=== PATIENT | female | born 1985 | race African-American/Black ===

== ENCOUNTER 2018-06-28 02:14 | Emergency (ER) | payer MEDICAID, OTHER ==
[~2018-06-28] VITALS: Ht 170.2 cm; Wt 104.0 kg
[2018-06-28] MEDS ORDERED: DIPHENHYDRAMINE 50MG CAPSULE PO ONE (02:45)
[2018-06-28 03:17] VITALS: BP 138/76
== END 2018-06-28 03:30 | disposition home or self-care (01) ==
LOC: ER 02:14
DX: O99.89 Other specified diseases and conditions complicating pregnancy, childbirth and the puerperium (principal); T78.1XXA Other adverse food reactions, not elsewhere classified, initial encounter; X58.XXXA Exposure to other specified factors, initial encounter; R10.9 Unspecified abdominal pain; R03.0 Elevated blood-pressure reading, without diagnosis of hypertension; Z3A.16 16 weeks gestation of pregnancy
CPT/HCPCS: 99283; Z7610; Q0163

== ENCOUNTER 2018-09-16 00:50 | Emergency (ER) | payer MEDICAID ==
[~2018-09-16 00:50] MED LIST: LEVO50TA MT; PNV1TABL50 MT; PROP80CA43 MT
== END 2018-09-16 03:28 | disposition left against medical advice (07) ==
LOC: ER 00:50
DX: Z53.21 Procedure and treatment not carried out due to patient leaving prior to being seen by health care provider (principal)

== ENCOUNTER 2018-10-20 11:34 | Emergency (ER) | payer MEDICAID ==
[~2018-10-20] VITALS: Ht 170.2 cm; Wt 98.6 kg
[2018-10-20 11:54] VITALS: BP 170/112
== END 2018-10-20 13:46 | disposition home or self-care (01) ==
LOC: ER 11:34
DX: O86.01 Infection of obstetric surgical wound, superficial incisional site (principal); O13.5 Gestational [pregnancy-induced] hypertension without significant proteinuria, complicating the puerperium; E89.0 Postprocedural hypothyroidism
CPT/HCPCS: 99283

== ENCOUNTER 2022-12-10 14:06 | Emergency (ER) | payer MEDICAID ==
[~2022-12-10] VITALS: Ht 177.8 cm; Wt 113.0 kg
[~2022-12-10 14:06] MED LIST changes: -PROP80CA43 MT; +PROP80CA59 MT
[2022-12-10 14:13] VITALS: BP 139/82
[2022-12-10] MEDS ORDERED: ONDANSETRON 4MG ODT PO ONE (14:30)
[2022-12-10] MEDS ORDERED: FAMOTIDINE 20MG TABLET PO ONE (14:30)
[2022-12-10] MEDS ORDERED: MAGNESIUM/ALUMINUM HYDROXIDE/SIMETHICONE 30ML UDC PO ONE (14:30)
[2022-12-10 15:18] LABS: CHLORIDE 109 mEq/L (98-107)
[2022-12-10 15:28] LABS: BASOPHILS % 0.2 % (0.0-2.0); EOSINOPHILS % 1.6 % (0.0-5.0); HEMOGLOBIN. 12.2 g/dL (12.0-16.0); LYMPHOCYTES % 19.9 % (20.0-50.0); MEAN CORPUSCULAR HEMOGLOBIN 27.5 pg (28.0-32.0); MEAN CORPUSCULAR VOLUME 83.7 fL (81.0-99.0); MEAN PLATELET VOLUME 8.5 fl (7.4-10.4); MONOCYTES % 4.6 % (2.0-8.0); NEUTROPHILS % 73.7 % (40.0-76.0); PLATELET 410 x1000/uL (130-400); RED BLOOD CELL COUNT 4.42 mill/uL (4.2-5.4); RED CELL DISTRIBUTION WIDTH 14.3 % (11.6-14.6)
[2022-12-10] MEDS ORDERED: ACETAMINOPHEN 325MG TABLET PO ONE (15:30)
[2022-12-10 16:09] LABS: HCG SCREEN NEGATIVE
[2022-12-10] MEDS ORDERED: FAMO-135 MT (16:48)
[2022-12-10] MEDS ORDERED: ONDA4TAB11 PO (16:48)
== END 2022-12-10 17:02 | disposition home or self-care (01) ==
LOC: ER 14:06
DX: R11.2 Nausea with vomiting, unspecified (principal); F41.1 Generalized anxiety disorder; F43.0 Acute stress reaction; Z57.8 Occupational exposure to other risk factors; R03.0 Elevated blood-pressure reading, without diagnosis of hypertension; R05.9 Cough, unspecified; E03.9 Hypothyroidism, unspecified
CPT/HCPCS: 36415; 80053; 83690; 84484; 84703; 85025; 93005; 99284; Q0162; Z7610

== ENCOUNTER 2023-03-22 09:59 | Emergency (ER) | payer MEDICAID ==
[~2023-03-22] VITALS: Ht 172.7 cm; Wt 114.0 kg
[~2023-03-22 09:59] MED LIST changes: +FAMO-135 MT; +ONDA4TAB11 PO
[2023-03-22] MEDS ORDERED: CLINDAMYCIN HCL 150MG CAPSULE PO ONE (13:00)
[2023-03-22] MEDS ORDERED: MUPI15CR11 TP (13:02)
[2023-03-22] MEDS ORDERED: CLIN-194 MT (13:02)
[2023-03-22] MEDS: IBUPROFEN 400MG TABLET PO ONE ×2 (13:45→13:52)
[2023-03-22 14:13] VITALS: BP 132/78
[2023-03-22] MEDS ORDERED: ACETAMINOPHEN 325MG TABLET PO ONE (14:15)
== END 2023-03-22 14:14 | disposition home or self-care (01) ==
LOC: ER 10:06
DX: L03.011 Cellulitis of right finger (principal); Z87.19 Personal history of other diseases of the digestive system; Z79.899 Other long term (current) drug therapy
CPT/HCPCS: 99283